=== PATIENT | male | born 1995 | race Hispanic/Latino ===

== ENCOUNTER 2017-11-14 09:42 | Emergency (ER) | payer OTHER ==
[2017-11-14 10:19] LABS: Basophils % (Auto) 0.3 % (0.0-1.8); Eosinophils # (Auto) 0.1 K/mm3 (0.0-0.4); Eosinophils % (Auto) 1.6 % (0.0-4.3); Hematocrit 44.3 % (35.5-45.6); Hemoglobin 15.5 gm/dl (11.8-15.2); Lymphocytes # (Auto) 2.6 K/mm3 (1.2-5.4); Lymphocytes % (Auto) 27.2 % (13.4-35.0); Mean Corpuscular HGB Conc 35 % (32-34); Mean Corpuscular Hemoglobin 33 pg (28-32); Mean Corpuscular Volume 94 fl (84-94); Monocytes # (Auto) 0.6 K/mm3 (0.0-0.8); Monocytes % (Auto) 6.3 % (0.0-7.3); Platelet Count 219 K/mm3 (140-440); Red Cell Distribution Width 12.6 % (13.2-15.2)
[2017-11-14 10:29] LABS: Alanine Aminotransferase 13 units/L (7-56); Albumin 4.5 g/dL (3.9-5); BUN/Creatinine Ratio 14; Blood Urea Nitrogen 13 mg/dL (9-20); Calcium 9.5 mg/dL (8.4-10.2); Hemolysis Index 7
[2017-11-14] MEDS ORDERED: ZOFRAN ONE (10:58)
[2017-11-14] MEDS ORDERED: NACL 0.9% 1000 ML 1,000 ML ONE (10:58)
[2017-11-14] MEDS ORDERED: NACL 0.9% 1000 ML 1,000 ML IV ONE (11:06)
[2017-11-14] MEDS ORDERED: ZOFRAN IV ONE ×2 (11:06→11:22)
[2017-11-14] MEDS ORDERED: MORPHINE IV ONE (11:22)
[2017-11-14] MEDS ORDERED: REGLAN IV ONE (11:23)
--- NOTE | 2017-11-14 11:29 | Emergency Department Report ---
ED General Adult HPI - General Chief complaint: Abdominal Pain Stated complaint: ABD PAIN Time Seen by Provider: 11/14/17 11:13 Source: patient Mode of arrival: Ambulatory Limitations: No Limitations - History of Present Illness Initial comments: Patient presents with complaint of abdominal pain that started this morning. Patient also complains of nausea and vomiting. But denies any diarrhea. Patient denies any sick contacts. States he was leaving [place] and driving back to [place] today and stopped along the way due to the pain -: Sudden Location: abdomen Radiation: non-radiation Severity scale (0 -10): 6 Quality: aching Consistency: constant Improves with: none Worsens with: none Associated Symptoms: nausea/vomiting Treatments Prior to Arrival: none - Related Data Previous Rx's Medication Instructions Recorded Last Taken Type Dicyclomine [Bentyl] 20 mg PO QID #30 tablet 11/14/17 Unknown Rx Ondansetron [Zofran Odt] 4 mg PO Q4HR PRN #20 tab.rapdis 11/14/17 Unknown Rx Allergies Allergy/AdvReac Type Severity Reaction Status Date / Time No Known Allergies Allergy Unverified 11/14/17 09:53 ED Review of Systems ROS: Stated complaint: ABD PAIN Other details as noted in HPI Comment: Unobtainable due to pts medical conditions Constitutional: denies: chills, fever Eyes: denies: eye pain, eye discharge, vision change ENT: denies: ear pain, throat pain Respiratory: denies: cough, shortness of breath, wheezing Cardiovascular: denies: chest pain, palpitations Endocrine: no symptoms reported Gastrointestinal: abdominal pain, nausea, vomiting. denies: diarrhea Genitourinary: denies: urgency, dysuria Musculoskeletal: denies: back pain, joint swelling, arthralgia Skin: denies: rash, lesions Neurological: denies: headache, weakness, paresthesias Psychiatric: denies: anxiety, depression Hematological/Lymphatic: denies: easy bleeding, easy bruising ED Past Medical Hx - Past Medical History Previous Medical History?: No - Surgical History Past Surgical History?: No - Social History Smoking Status: Current Every Day Smoker Substance Use Type: Marijuana - Medications Home Medications: Home Medications Medication Instructions Recorded Confirmed Last Taken Type Dicyclomine [Bentyl] 20 mg PO QID #30 tablet 11/14/17 Unknown Rx Ondansetron [Zofran Odt] 4 mg PO Q4HR PRN #20 tab.rapdis 11/14/17 Unknown Rx ED Physical Exam - General Limitations: No Limitations General appearance: alert, in no apparent distress - Head Head exam: Present: atraumatic, normocephalic - Eye Eye exam: Present: normal appearance - ENT ENT exam: Present: mucous membranes moist - Neck Neck exam: Present: normal inspection - Respiratory Respiratory exam: Present: normal lung sounds bilaterally. Absent: respiratory distress - Cardiovascular Cardiovascular Exam: Present: regular rate, normal rhythm. Absent: systolic murmur, diastolic murmur, rubs, gallop - GI/Abdominal GI/Abdominal exam: Present: soft, tenderness (tenderness to palpation or right upper quadrant and epigastric region), normal bowel sounds - Rectal Rectal exam: Present: deferred - Extremities Exam Extremities exam: Present: normal inspection - Back Exam Back exam: Present: normal inspection - Neurological Exam Neurological exam: Present: alert, oriented X3 - Psychiatric Psychiatric exam: Present: normal affect, normal mood - Skin Skin exam: Present: warm, dry, intact, normal color. Absent: rash ED Course Vital Signs 11/14/17 11/14/17 11/14/17 09:48 11:53 12:20 Temperature 97.5 F L 97.9 F Pulse Rate 73 78 Respiratory 20 16 Rate Blood Pressure 140/85 Blood Pressure 123/78 [Left] O2 Sat by Pulse 100 98 Oximetry 11/14/17 12:47 Temperature Pulse Rate Respiratory Rate Blood Pressure 135/85 Blood Pressure [Left] O2 Sat by Pulse Oximetry ED Medical Decision Making - Lab Data Result diagrams: 11/14/17 09:57 11/14/17 09:57 - Medical Decision Making Discussed results with the patient. Critical care attestation.: If time is entered above; I have spent that time in minutes in the direct care of this critically ill patient, excluding procedure time. ED Disposition Clinical Impression: Nausea & vomiting, Abdominal pain Disposition: DC-01 TO HOME OR SELFCARE Is pt being admited?: No Does the pt Need Aspirin: No Condition: Stable Prescriptions: Dicyclomine [Bentyl] 20 mg PO QID #30 tablet Ondansetron [Zofran Odt] 4 mg PO Q4HR PRN #20 tab.rapdis PRN Reason: Nausea Referrals: PRIMARY CARE, [Primary Care Provider] - 3-5 Days NIKOLAS HITCHCOCK MD [Staff Physician] - 3-5 Days Time of Disposition: 13:19
--- NOTE | 2017-11-14 12:20 | Ultrasound Report ---
ULTRASOUND ABDOMEN LIMITED INDICATION: RUQ abdominal pain. COMPARISON: None similar at this institution. FINDINGS: Right upper quadrant ultrasound demonstrates grossly normal hepatic contours without focal suspicious lesions or biliary dilatation. Slight diffuse hepatic coarsening not excluded. Right hepatic lobe approximately 17.7 cm in midclavicular length. No gallstones, pericholecystic fluid or positive sonographic Ortega's sign. Gallbladder wall thickness is 1.9 mm. CBD caliber 5.6 mm. Normal imaged pancreas, IVC and abdominal aorta. Slightly echogenic, nonhydronephrotic right kidney approximately 13.8 x 6.5 x 7.2 cm with cortical thickness of 1.8 cm and demonstrate multiple cortical cysts, the largest 2.9 x 2.6 x 2.4 cm at the lower pole, image 24. CONCLUSION: No acute right upper quadrant sonographic abnormality with slightly coarse liver, multiple right renal cysts and mild underlying medical renal disease suspected, as detailed above. Please correlate. Thank you for the opportunity to participate in this patient's care.
[2017-11-14 13:15] LABS: Bilirubin,Urine NEG (Negative); Blood,Urine NEG (Negative); Color,Urine Yellow (Yellow); Mucus,Urine FEW /HPF; Protein,Urine <15 mg/dL mg/dL (Negative); Urobilinogen,Urine < 2.0 mg/dL (<2.0)
[2017-11-14 14:44] VITALS: BP 112/63
== END 2017-11-14 14:44 | disposition home or self-care (01) ==
LOC: ED 09:42
DX: R10.11 Right upper quadrant pain (principal); R10.13 Epigastric pain; R11.2 Nausea with vomiting, unspecified; F17.200 Nicotine dependence, unspecified, uncomplicated; F12.10 Cannabis abuse, uncomplicated
CPT/HCPCS: 36415; 76705; 80053; 81001; 83690; 85025; 96361; 96374; 96375; 96376; 99284; J2270; J2405; J2765; J7030